=== PATIENT | male | born 1945 | race Caucasian/White ===

== ENCOUNTER 2020-02-24 15:55 | Inpatient (IN) ==
[2020-02-24] MEDS ORDERED: Azithromycin 500 MG in D5% in Water 250 ML IVPB ONE (17:09)
[2020-02-24] MEDS ORDERED: 0.9 % Sodium Chloride 1,000 ML IVC ONE (17:14)
[2020-02-24] MEDS ORDERED: Ipratropium/Albuterol Neb 3 ML IH ONE (17:16)
[2020-02-24] MEDS ORDERED: Azithromycin 500 MG VIAL ONE (17:25)
[2020-02-24] MEDS ORDERED: Naloxone 0.4 MG/ML INJ IVP PRN (18:05)
[2020-02-24] MEDS ORDERED: *HR* Metoprolol 5 MG/5 ML VIAL IVP PRN (18:07)
[2020-02-24 18:44] LABS: Influenza A PCR Negative (Negative); Influenza B PCR Negative (Negative); Resp. Syncytial Virus PCR Negative (Negative)
[2020-02-24 18:45] LABS: SARS-CoV-2 by PCR (In House) Negative (Negative)
[2020-02-24] MEDS: Levalbuterol Neb 1.25 MG/3 ML IH SCH ×2 (19:46→22:49)
[2020-02-24] MEDS: Ipratropium Neb 0.5 MG NEBULIZER IH SCH ×2 (19:46→22:49)
[2020-02-24] MEDS: MethylPREDNISolone 40 MG/ML VIAL IVP SCH (20:40)
[2020-02-25] MEDS: MethylPREDNISolone 40 MG/ML VIAL IVP SCH ×3 (01:00→19:19)
[2020-02-25] MEDS: Levalbuterol Neb 1.25 MG/3 ML IH SCH ×5 (04:00→21:32)
[2020-02-25] MEDS: Ipratropium Neb 0.5 MG NEBULIZER IH SCH ×5 (04:01→21:32)
[2020-02-25] MEDS: *HR* Enoxaparin 40 MG/0.4 ML SYRINGE SQ SCH (04:18)
[2020-02-25 07:25] LABS: BUN/Creatinine Ratio 31 (6-26); Blood Urea Nitrogen 18 mg/dL (8-23); Calcium 8.9 mg/dL (8.6-10.3); Carbon Dioxide 26 mEq/L (23-29); Chloride 102 mEq/L (98-107); Glucose 142 mg/dL (70-105); Osmolality,Calculated 294 (280-300); Sodium 140 mEq/L (136-145); eGFR For African Americans > 60 (> 60); eGFR For Non-African Americans > 60 (> 60)
[2020-02-25] MEDS: Metoprolol XL (24 HR) Succ 25 MG TAB.ER.24H PO SCH (08:08)
[2020-02-25] MEDS: amLODIPine 5 MG TABLET PO SCH (08:08)
[2020-02-25] MEDS: Aspirin Enteric Coated 81 MG Tablet PO SCH (08:09)
[2020-02-25] MEDS: cefTRIAXone 1,000 MG in Water for inj. (sterile) 10 ML IVP SCH (08:09)
[2020-02-25] MEDS: Magnesium Oxide 400 MG TABLET PO SCH (08:09)
[2020-02-25] MEDS ORDERED: Azithromycin 500 MG in 0.9 % Sodium Chloride 250 ML IVPB SCH (09:00)
[2020-02-25] MEDS: Azithromycin 250 MG TABLET PO SCH (17:08)
[2020-02-25] MEDS ORDERED: MethylPREDNISolone 40 MG/ML VIAL IVP ONE (20:51)
[2020-02-26] MEDS: Ipratropium Neb 0.5 MG NEBULIZER IH SCH ×4 (03:35→21:21)
[2020-02-26] MEDS: Levalbuterol Neb 1.25 MG/3 ML IH SCH ×4 (03:35→21:21)
[2020-02-26] MEDS: *HR* Enoxaparin 40 MG/0.4 ML SYRINGE SQ SCH (04:06)
[2020-02-26 06:27] LABS: Hematocrit 43.6 % (37.5-50.1); Hemoglobin 13.9 g/dL (12.9-16.9); Mean Corpuscular HGB Conc 31.9 g/dL (31.6-35.5); Mean Corpuscular Hemoglobin 28.7 pg (28.0-33.3); Mean Corpuscular Volume 89.9 fL (83.0-100.0); Mean Platelet Volume 10.3 fL (9.4-12.4); Platelet Count 310 K/mcL (140-400); Red Blood Count 4.85 M/mcL (4.19-5.50); Red Cell Distribution Width 14.2 % (11.5-14.5); White Blood Count 15.2 K/mcL (4.3-11.1)
[2020-02-26 06:28] LABS: VBG HCO3 29 mEq/L (21-27); VBG PCO2 56 mmHg (41-51); VBG PH 7.32 pH Units (7.32-7.42); VBG PO2 58 mmHg (25-50)
[2020-02-26] MEDS ORDERED: DilTIAZem 50 MG in 0.9 % Sodium Chloride 40 ML IVC SCH (06:30)
[2020-02-26 06:46] LABS: BUN/Creatinine Ratio 42 (6-26); Blood Urea Nitrogen 32 mg/dL (8-23); Calcium 9.2 mg/dL (8.6-10.3); Carbon Dioxide 28 mEq/L (23-29); Chloride 100 mEq/L (98-107); Glucose 188 mg/dL (70-105); Magnesium 2.4 mg/dL (1.6-2.6); Osmolality,Calculated 298 (280-300); Potassium 3.9 mEq/L (3.5-5.1); Sodium 138 mEq/L (136-145); eGFR For African Americans > 60 (> 60); eGFR For Non-African Americans > 60 (> 60)
[2020-02-26] MEDS: Aspirin Enteric Coated 81 MG Tablet PO SCH (10:02)
[2020-02-26] MEDS: Azithromycin 250 MG TABLET PO SCH (10:02)
[2020-02-26] MEDS: amLODIPine 5 MG TABLET PO SCH (10:02)
[2020-02-26] MEDS: predniSONE 20 MG TABLET PO SCH (10:02)
[2020-02-26] MEDS: Metoprolol XL (24 HR) Succ 25 MG TAB.ER.24H PO SCH (10:02)
[2020-02-26] MEDS: Magnesium Oxide 400 MG TABLET PO SCH (10:02)
[2020-02-26] MEDS: cefTRIAXone 1,000 MG in Water for inj. (sterile) 10 ML IVP SCH (10:03)
[2020-02-26] MEDS ORDERED: Metoprolol XL (24 HR) Succ 25 MG TAB.ER.24H PO ONE (10:55)
[2020-02-26] MEDS ORDERED: Furosemide 40 MG/4 ML VIAL IVP ONE (10:55)
[2020-02-26] MEDS: *HR* Metoprolol 5 MG/5 ML VIAL IVP PRN (15:22)
[2020-02-26] MEDS: Budesonide/Formoterol 160/4.5 1 PUFF INH IH SCH ×2 (17:02→19:58)
[2020-02-26] MEDS ORDERED: Levalbuterol Neb 1.25 MG/3 ML ONE (17:05)
[2020-02-26] MEDS ORDERED: Ipratropium Neb 0.5 MG NEBULIZER ONE (17:05)
[2020-02-26] MEDS: Metoprolol XL (24 HR) Succ 50 MG TAB.ER.24H PO SCH (19:56)
[2020-02-27] MEDS: Ipratropium Neb 0.5 MG NEBULIZER IH SCH ×4 (03:48→22:47)
[2020-02-27] MEDS: Levalbuterol Neb 1.25 MG/3 ML IH SCH ×4 (03:48→22:48)
[2020-02-27] MEDS: *HR* Enoxaparin 40 MG/0.4 ML SYRINGE SQ SCH (05:51)
[2020-02-27] MEDS: predniSONE 20 MG TABLET PO SCH (08:24)
[2020-02-27] MEDS: Aspirin Enteric Coated 81 MG Tablet PO SCH (08:25)
[2020-02-27] MEDS: Magnesium Oxide 400 MG TABLET PO SCH (08:25)
[2020-02-27] MEDS: Azithromycin 250 MG TABLET PO SCH (08:25)
[2020-02-27] MEDS: Metoprolol XL (24 HR) Succ 50 MG TAB.ER.24H PO SCH ×2 (08:26→20:11)
[2020-02-27] MEDS: cefTRIAXone 1,000 MG in Water for inj. (sterile) 10 ML IVP SCH (08:30)
[2020-02-27] MEDS ORDERED: Metoprolol XL (24 HR) Succ 50 MG TAB.ER.24H PO SCH (09:00)
[2020-02-27] MEDS: Budesonide/Formoterol 160/4.5 1 PUFF INH IH SCH ×2 (10:48→22:50)
[2020-02-27] MEDS: *HR* Metoprolol 5 MG/5 ML VIAL IVP PRN (13:20)
[2020-02-28] MEDS: Levalbuterol Neb 1.25 MG/3 ML IH SCH ×4 (03:57→21:51)
[2020-02-28] MEDS: Ipratropium Neb 0.5 MG NEBULIZER IH SCH ×4 (03:57→21:51)
[2020-02-28] MEDS: *HR* Enoxaparin 40 MG/0.4 ML SYRINGE SQ SCH (05:19)
[2020-02-28 06:15] LABS: Hematocrit 44.1 % (37.5-50.1); Hemoglobin 14.2 g/dL (12.9-16.9); Mean Corpuscular HGB Conc 32.2 g/dL (31.6-35.5); Mean Corpuscular Hemoglobin 29.7 pg (28.0-33.3); Mean Corpuscular Volume 92.3 fL (83.0-100.0); Mean Platelet Volume 9.9 fL (9.4-12.4); Platelet Count 296 K/mcL (140-400); Red Blood Count 4.78 M/mcL (4.19-5.50); Red Cell Distribution Width 14.1 % (11.5-14.5)
[2020-02-28 06:20] LABS: White Blood Count 7.1 K/mcL (4.3-11.1)
[2020-02-28 06:41] LABS: BUN/Creatinine Ratio 29 (6-26); Blood Urea Nitrogen 17 mg/dL (8-23); Calcium 8.9 mg/dL (8.6-10.3); Carbon Dioxide 33 mEq/L (23-29); Chloride 101 mEq/L (98-107); Glucose 98 mg/dL (70-105); Magnesium 2.2 mg/dL (1.6-2.6); Osmolality,Calculated 294 (280-300); Potassium 3.8 mEq/L (3.5-5.1); Sodium 141 mEq/L (136-145); eGFR For African Americans > 60 (> 60); eGFR For Non-African Americans > 60 (> 60)
[2020-02-28] MEDS: Magnesium Oxide 400 MG TABLET PO SCH (08:02)
[2020-02-28] MEDS: cefTRIAXone 1,000 MG in Water for inj. (sterile) 10 ML IVP SCH (08:03)
[2020-02-28] MEDS: predniSONE 20 MG TABLET PO SCH (08:03)
[2020-02-28] MEDS: Aspirin Enteric Coated 81 MG Tablet PO SCH (08:03)
[2020-02-28] MEDS: Azithromycin 250 MG TABLET PO SCH (08:03)
[2020-02-28] MEDS: Metoprolol XL (24 HR) Succ 50 MG TAB.ER.24H PO SCH ×2 (08:49→21:21)
[2020-02-28] MEDS: Budesonide/Formoterol 160/4.5 1 PUFF INH IH SCH ×2 (10:37→21:51)
[2020-02-28] MEDS: *HR* Enoxaparin 80 MG/0.8 ML SYRINGE SQ SCH (17:31)
[2020-02-29 03:08] LABS: Hematocrit 43.1 % (37.5-50.1); Hemoglobin 13.8 g/dL (12.9-16.9); Mean Corpuscular Hemoglobin 29.1 pg (28.0-33.3); Mean Corpuscular Volume 90.7 fL (83.0-100.0); Mean Platelet Volume 10.1 fL (9.4-12.4); Platelet Count 293 K/mcL (140-400); Red Blood Count 4.75 M/mcL (4.19-5.50); White Blood Count 8.1 K/mcL (4.3-11.1)
[2020-02-29 03:30] LABS: Alanine Aminotransferase 35 Units/L (7-52); Albumin 3.3 g/dL (3.5-5.7); Albumin/Globulin Ratio 1.3 (1.1-2.2); Alkaline Phosphatase 58 Units/L (34-104); Aspartate Amino Transferase 18 Units/L (13-39); BUN/Creatinine Ratio 27 (6-26); Bilirubin,Direct 0.1 mg/dL (0.0-0.2); Bilirubin,Indirect 0.2 mg/dL (0.0-1.0); Bilirubin,Total 0.3 mg/dL (0.3-1.0); Blood Urea Nitrogen 18 mg/dL (8-23); Calcium 8.7 mg/dL (8.6-10.3); Carbon Dioxide 33 mEq/L (23-29); Chloride 101 mEq/L (98-107); Globulin 2.5 g/dL (2.4-3.5); Glucose 113 mg/dL (70-105); Magnesium 2.3 mg/dL (1.6-2.6); Osmolality,Calculated 297 (280-300); Phosphorous 2.8 mg/dL (2.7-4.5); Potassium 4.2 mEq/L (3.5-5.1); Sodium 142 mEq/L (136-145); Total Protein 5.8 g/dL (6.4-8.9); Troponin I 0.04 ng/mL (< 0.04); eGFR For African Americans > 60 (> 60); eGFR For Non-African Americans > 60 (> 60)
[2020-02-29] MEDS: Levalbuterol Neb 1.25 MG/3 ML IH SCH ×2 (04:00→10:19)
[2020-02-29] MEDS: Ipratropium Neb 0.5 MG NEBULIZER IH SCH ×2 (04:00→10:19)
[2020-02-29] MEDS: *HR* Enoxaparin 80 MG/0.8 ML SYRINGE SQ SCH (05:59)
[2020-02-29] MEDS: Budesonide/Formoterol 160/4.5 1 PUFF INH IH SCH (07:29)
[2020-02-29] MEDS: predniSONE 20 MG TABLET PO SCH (08:06)
[2020-02-29] MEDS: Azithromycin 250 MG TABLET PO SCH (08:07)
[2020-02-29] MEDS: cefTRIAXone 1,000 MG in Water for inj. (sterile) 10 ML IVP SCH (08:07)
[2020-02-29] MEDS: Magnesium Oxide 400 MG TABLET PO SCH (08:07)
[2020-02-29] MEDS: Aspirin Enteric Coated 81 MG Tablet PO SCH (08:07)
[2020-02-29] MEDS: Metoprolol XL (24 HR) Succ 50 MG TAB.ER.24H PO SCH (08:07)
[2020-02-29 08:27] VITALS: BP 133/90
== END 2020-02-29 11:13 | disposition home or self-care (01) | DRG 871 ==
LOC: EMEROOARM 15:55 → 3BNU 15:55 → SUATTDRO 18:08 → 3BNU 20:00
PROVIDERS: ADMIT Internal Medicine; ATTEND Internal Medicine